=== PATIENT | female | born 1965 | race Caucasian/White ===

== ENCOUNTER → 2017-01-16 | Day surgery (SDC) | payer OTHER ==
[~2017-01-16] VITALS: Ht 157.5 cm; Wt 122.5 kg
[~2017-01-16] MED LIST: ALBUTEROL0.09 MG/A1 INH; ATORVASTATIN CA10 M1 PO; ATORVASTATIN CA10 MG PO; DULERA 200 MCG/13 GM; FLOVENT DISKU100 MCG; HYDROCHLOROTHIA25 M1 PO; MEDROL DOSEPAK1 PAC PO; MOTRIN IB200 M1 PO; PROAIR HFA8.5 GM; TESSALON PERLE100 MG PO; TRIAMCINOLONE A15 G3 TOP; ZITHROMAX Z-PA250 M1 PO
--- NOTE | 2017-01-18 18:16 | Operative Report ---
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 After successful induction of general anesthesia, another timeout was done, antibiotics given, the abdomen was clipped prepped and draped in the usual sterile fashion. Horizontil incisions were planned overlying the hernias, a 2-1/2 cm horizontal incision at the top of the umbilicus and higher up in the midline a 5 cm horizontal incision about 3 cm below the xiphoid. These 2 areas were infiltrated with local anesthetic and then made with a 15 blade. We approached the umbilical 1 first. This was deepened with cautery and the herniated fat and overlying sac were dissected circumferentially off the fascia, defining the true edges of the defect. It was oriented horizontally, we then inserted the Ventralex coated 4.3 centimeter mesh underneath the defect using the tails to center it and then closed the defect with interrupted 2-0 Maxon sutures in this case 4, incorporating the mesh with each bite. The subcutaneous layer and Julia's fascia were reapproximated to cover. The incision was irrigated and then the skin was reapproximated with a running subcuticular 4-0 Biosyn, followed by Mastisol, Steri-Strips Telfa Tegaderm. We approached the larger one in similar fashion the incarcerated contents were little more complex there was omentum and we had to make sure there was no bowel there was some small bowel and colon at the edge of the fascia the defect was also horizontal little over 3 cm in length and about 2 cm wide, we used a larger mesh, 6 cm, and close the defect over incorporating it with the suture in similar fashion as outlined above for the smaller hernia. EBL minimal lap and sponge counts correct wound expectancy clean IV fluids crystalloid complications none patient tolerated the procedure well was awakened extubated returned to the recovery room in satisfactory condition.
== END ==
LOC: STS 01:08
DX: K43.6 Other and unspecified ventral hernia with obstruction, without gangrene (principal); K42.0 Umbilical hernia with obstruction, without gangrene; J45.909 Unspecified asthma, uncomplicated; E78.00 Pure hypercholesterolemia, unspecified; E66.9 Obesity, unspecified
CPT/HCPCS: 81025; C1781; J0131; J0690; J1100; J2250; J2405

== ENCOUNTER 2018-02-24 13:20 | Emergency (ER) | payer OTHER ==
[~2018-02-24] VITALS: Ht 127 cm; Wt 117.9 kg
--- NOTE | 2018-02-24 14:13 | ED MVC/FALL/TRAUMA COMPLAINT ---
History of Present Illness General Chief Complaint: Fall Stated Complaint: R LEG PAIN S/P FALL Source: patient, old records Exam Limitations: no limitations Vital Signs & Intake/Output Vital Signs & Intake/Output Vital Signs Date Time Temp Pulse Resp B/P B/P Pulse O2 O2 Flow FiO2 Mean Ox Delivery Rate 02/24 1624 98.1 70 15 125/75 99 Room Air Room Air 02/24 1442 Room Air Room Air 02/24 1333 98.6 76 18 144/91 98 Room Air ED Intake and Output 02/25 0000 02/24 1200 Intake Total 0 Output Total Balance 0 Intake, Oral 0 Patient 117.934 kg Weight Weight Reported by Patient Measurement Method Allergies Coded Allergies: banana (Intermediate, HIVES 01/09/16) Reconcile Medications Albuterol Sulfate (Proair Hfa) 90 MCG HFA.AER.AD ASTHMA (Reported) Atorvastatin Calcium 10 MG TABLET 1 TAB PO DAILY CHOLESTEROL (Reported) Fluticasone Propionate (Flovent Diskus) 100 MCG BLST.W.DEV ASTHMA (Reported) Mometasone/Formoterol (Dulera 200 Mcg/5 Mcg Inhaler) 200 MCG-5 MCG/ACTUATION HFA.AER.AD ASTHMA (Reported) Triamcinolone Acetonide 15 GM OINT...G. 1 KIMMIE TOP BID PRN rash Triamcinolone 0.1% cream apply to affected area(s) Triage Note: 52 YO FEMALE TO TRIAGE C/O PAIN TO R UPPER THIGH S/P TRIP AND FALL. PT REPORTS SHE CANNOT BEND LEG OR STRAIGHTEN HER LEG ALL THE WAY D/T THE PAIN. Triage Nurses Notes Reviewed? yes HPI: 52F PMH asthma, morbid obesity presenting with right hip and knee pain after falling. She was working around the yard when her right knee "gave out" and she fell to the ground, landing on her right hip. She did not lose consciousness or hit her head, and she had no symptoms prior to or after falling. She is unable to straigthen her knee due to pain. ROM is limited by pain, sensation is intact. Past History Travel History Traveled to [place] past 21 day No Medical History Any Pertinent Medical History? 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 No Review of Systems Review of Systems Constitutional: Reports: no symptoms. Eyes: Reports: no symptoms. Ears, Nose, Throat, Mouth: Reports: no symptoms. Respiratory: Reports: no symptoms. Cardiovascular: Reports: no symptoms. Gastrointestinal/Abdominal: Reports: no symptoms. Genitourinary: Reports: no symptoms. Musculoskeletal: Reports: no symptoms. Skin: Reports: no symptoms. Neurological/Psychological: Reports: no symptoms. All Other Systems: Reviewed and Negative Physical Exam Physical Exam General Appearance: well developed/nourished, no apparent distress Head: atraumatic, normal appearance Eyes: Bilateral: normal appearance. Ears, Nose, Throat, Mouth: hearing grossly normal, moist mucous membrane Neck: normal inspection, supple, full range of motion Respiratory: normal breath sounds, no respiratory distress Cardiovascular: regular rate/rhythm Gastrointestinal: soft, non-tender Back: normal inspection, normal range of motion Extremities: no bony tenderness, ROM limited by pain of right knee and hip, sensation intact Neurologic/Psych: awake, alert, oriented x 3, normal mood/affect Skin: intact, normal color, warm/dry Core Measures ACS in differential dx? No CVA/TIA Diagnosis No Sepsis Present: No Sepsis Focused Exam Completed? No Progress Differential Diagnosis: abd injury, C/T/L spine injury, ext injury, ICH, pelvis injury, spinal cord injury Plan of Care: Orders Procedure Date/time Status Durable Medical Equipment 02/24 1605 Active Durable Medical Equipment 02/24 1600 Active Diagnostic Imaging: Viewed by Me: Radiology Read. Discussed w/RAD: Radiology Read. Radiology Impression: PATIENT: SHYANN WALLIS PRESENT AGE: 52 PATIENT ACCOUNT NO: [id number] : 67 LOCATION: [facility] ORDERING PHYSICIAN: Audrey More MD SERVICE DATE: 02/24/18 EXAM TYPE : RAD - XRY-HIP 2-3 VIEWS, RIGHT; XRY-KNEE COMPLETE RIGHT EXAMINATION: CR HIP, RIGHT CR KNEE, RIGHT CLINICAL INFORMATION: Fall with right hip, femur, and knee pain. COMPARISON: CT scan of the abdomen and pelvis dated 12/25/2016. TECHNIQUE: Frontal view of the pelvis and frontal and frog-leg lateral views of the right hip, including the femur. 4 views of the right knee performed on 5 images. FINDINGS: Pelvis/right hip: Diffuse osteopenia. No acute fracture or dislocation is seen. Both hip joints are normally located and show mild degenerative changes with mild superior joint space narrowing, spurring and cystic changes seen. Pubic symphysis is intact. Sacroiliac joints bilaterally are intact with mild degenerative change seen. Moderate to severe degenerative changes as seen in the lower lumbar spine. The right hip and femur are intact with no acute fracture is seen. The bony sacrum is suboptimally assessed due to overlapping stool filled loop of bowel. Right knee: Diffuse osteopenia. No acute fracture or dislocation. Moderate degenerative changes in the patellofemoral and medial femoral compartments with joint space narrowing and spurring seen. Mild spurring in the lateral femoral compartment also noted. No joint calcifications. Trace knee joint effusion. IMPRESSION: 1. Diffuse osteopenia. No acute fracture or dislocation of the pelvis or right hip or right knee. 2. Degenerative changes in the pelvis, right hip and knee as discussed above. DICTATED BY: Jan ROGERS,Ana Cristina North DATE/TIME DICTATED:02/24/181505 ACTIVITIES AIDE:STEPHANIE DATE/TIME TRANSCRIBED:02/24/181505 Departure Departure Disposition: HOME OR SELF CARE Condition: Stable Clinical Impression Primary Impression: Right knee sprain Referrals: Cammy ROGERS,Jesse Morely MD,Naomi Corbin (PCP/Family) Additional Instructions: Follow up with your orthopedist. Keep the leg elevated and iced. If any new or worsening symptoms return to ER. Departure Forms: Customer Survey General Discharge Information
--- NOTE | 2018-02-24 15:39 | RADIOLOGY REPORT ---
EXAMINATION: CR HIP, RIGHT CR KNEE, RIGHT CLINICAL INFORMATION: Fall with right hip, femur, and knee pain. COMPARISON: CT scan of the abdomen and pelvis dated 12/25/2016. TECHNIQUE: Frontal view of the pelvis and frontal and frog-leg lateral views of the right hip, including the femur. 4 views of the right knee performed on 5 images. FINDINGS: Pelvis/right hip: Diffuse osteopenia. No acute fracture or dislocation is seen. Both hip joints are normally located and show mild degenerative changes with mild superior joint space narrowing, spurring and cystic changes seen. Pubic symphysis is intact. Sacroiliac joints bilaterally are intact with mild degenerative change seen. Moderate to severe degenerative changes as seen in the lower lumbar spine. The right hip and femur are intact with no acute fracture is seen. The bony sacrum is suboptimally assessed due to overlapping stool filled loop of bowel. Right knee: Diffuse osteopenia. No acute fracture or dislocation. Moderate degenerative changes in the patellofemoral and medial femoral compartments with joint space narrowing and spurring seen. Mild spurring in the lateral femoral compartment also noted. No joint calcifications. Trace knee joint effusion. IMPRESSION: 1. Diffuse osteopenia. No acute fracture or dislocation of the pelvis or right hip or right knee. 2. Degenerative changes in the pelvis, right hip and knee as discussed above.
[2018-02-24 16:24] VITALS: BP 125/75
[2018-06-25] MEDS ORDERED: PERCOCET 5-3251 EACH PO (15:36)
== END 2018-02-24 16:25 ==
LOC: ERH 13:20
DX: S83.91XA Sprain of unspecified site of right knee, initial encounter (principal); W19.XXXA Unspecified fall, initial encounter; Y93.H2 Activity, gardening and landscaping; Y92.9 Unspecified place or not applicable
CPT/HCPCS: 73502-RT; 73562-RT